=== PATIENT | female | born 1990 | race Caucasian/White ===

== ENCOUNTER → 2017-08-16 | Outpatient (CLI) | payer OTHER ==
[~2017-08-16] MED LIST: PRENTAB26 PO
[2017-08-16 12:52] LABS: BASO % 1.1 %; BASO ABS # 0.06 K/uL (0-0.2); COMPLETE YES; EOS % 2.6 %; HEMATOCRIT 38.3 % (37-47); IG% 0.2 %; LYMPH % 27.4 %; MEAN CELL VOLUME 83.1 fL (80-100); MEAN CORPUSCULAR HEMOGLOBIN 28.6 pg (25-34); MEAN CORPUSCULAR HGB CONC 34.5 g/dl (32-36); MEAN PLATELET VOLUME 11.9 fL (7.4-10.4); MONO % 7.3 %; NEUT % 61.4 %; PLATELET COUNT 191 K/uL (130-400); RED BLOOD COUNT 4.61 M/uL (4.2-5.4); WHITE BLOOD COUNT 5.47 K/uL (4.8-10.8)
[2017-08-16 16:21] LABS: URINE APPEARANCE CLEAR (CLEAR); URINE BILIRUBIN NEG (NEG); URINE COLOR YELLOW; URINE NITRITE NEG (NEG); URINE PH 6.5 (4.5-7.5); URINE SPECIFIC GRAVITY 1.021 (1.000-1.030); UROBILINOGEN NEG (NEG)
[2017-08-16 16:29] LABS: MANUAL MICROSCOPIC REQUIRED? NO; REVIEW REQ? NO
[2017-08-19 01:39] LABS: CHLAMYDIA TRACH RNA*** NOT DETECTED (NOT DETECTED); GC (NEIS GONORRHOEAE)RNA** NOT DETECTED (NOT DETECTED)
== END ==
LOC: C.LAB1850 10:51
PROVIDERS: ATTEND Obstetrics & Gynecology
DX: Z34.81 Encounter for supervision of other normal pregnancy, first trimester (principal)

== ENCOUNTER → 2017-08-16 | Outpatient (CLI) | payer OTHER | LOC: C.PAPS 16:18 | PROVIDERS: ATTEND Obstetrics & Gynecology | DX: Z34.81 Encounter for supervision of other normal pregnancy, first trimester (principal) ==

== ENCOUNTER → 2017-09-20 | Outpatient (CLI) | payer OTHER ==
[2017-09-20 12:37] LABS: GTGD 50 Grams
== END | disposition home or self-care (01) ==
LOC: C.LAB1850 09:17
PROVIDERS: ATTEND Obstetrics & Gynecology
DX: Z34.82 Encounter for supervision of other normal pregnancy, second trimester (principal)

== ENCOUNTER → 2017-10-04 | Outpatient (CLI) | payer OTHER | END | disposition home or self-care (01) | LOC: C.LAB1850 07:16 | PROVIDERS: ATTEND Obstetrics & Gynecology | DX: O28.1 Abnormal biochemical finding on antenatal screening of mother (principal); Z3A.00 Weeks of gestation of pregnancy not specified ==

== ENCOUNTER → 2017-12-22 | Outpatient (CLI) | payer BC | END | disposition home or self-care (01) | LOC: C.LABSPEC 15:37 | PROVIDERS: ATTEND Obstetrics & Gynecology | DX: Z34.83 Encounter for supervision of other normal pregnancy, third trimester (principal); Z3A.00 Weeks of gestation of pregnancy not specified ==

== ENCOUNTER → 2018-01-03 | Outpatient (CLI) | payer BC ==
[2018-01-03 10:07] LABS: HEMATOCRIT 35.2 % (37-47); HEMOGLOBIN 12.2 g/dL (12.0-16.0)
== END | disposition home or self-care (01) ==
LOC: C.LAB1850 08:19
PROVIDERS: ATTEND Obstetrics & Gynecology
DX: Z34.83 Encounter for supervision of other normal pregnancy, third trimester (principal); Z3A.00 Weeks of gestation of pregnancy not specified

== ENCOUNTER → 2018-02-07 | Outpatient (CLI) | payer BC | END | disposition home or self-care (01) | LOC: C.LABSPEC 14:01 | PROVIDERS: ATTEND Obstetrics & Gynecology | DX: Z34.83 Encounter for supervision of other normal pregnancy, third trimester (principal) ==

== ENCOUNTER 2018-03-01 19:03 | Outpatient (CLI) | payer BC ==
[~2018-03-01] VITALS: Ht 172.7 cm; Wt 156.0 kg
[2018-03-01 19:48] VITALS: Ht 172.7 cm; Wt 156.0 kg
== END 2018-03-01 20:27 | disposition home or self-care (01) ==
LOC: C.OPB 19:03 → C.LD 19:03 → C.OPB 20:27
PROVIDERS: ATTEND Obstetrics & Gynecology
DX: Z34.83 Encounter for supervision of other normal pregnancy, third trimester (principal)